=== PATIENT | female | born 1990 | race Caucasian/White ===

== ENCOUNTER 2024-05-01 10:19 | Day surgery (SDC) | payer OTHER ==
[~2024-05-01] VITALS: Ht 157.5 cm; Wt 64.5 kg
[2024-05-01] MEDS ORDERED: ROCURONIUM BROMIDE 50MG/5ML VIAL As Ordered ONE (11:02)
[2024-05-01] MEDS ORDERED: LIDOCAINE 2% 100MG/5ML SDV (FOR ANES.) As Ordered ONE (11:02)
[2024-05-01] MEDS ORDERED: ONDANSETRON 4MG 2ML VIAL As Ordered ONE (11:03)
[2024-05-01] MEDS ORDERED: diphenhydrAMINE 50MG/ML VIAL As Ordered ONE (11:14)
[2024-05-01] MEDS: LR 1,000 ML IV SCH (11:20)
[2024-05-01] MEDS ORDERED: MIDAZOLAM INJ 2MG/2ML VIAL As Ordered ONE (11:27)
[2024-05-01] MEDS ORDERED: fentaNYL 100 MCG/2 ML INJECTION As Ordered ONE (11:27)
[2024-05-01] MEDS ORDERED: ACETAMINOPHEN 1000MG 100ML IV BAG As Ordered ONE (11:31)
[2024-05-01] MEDS: AMPICILLIN SOD/SULBACTAM SOD 3 GM in D5W MINI-BAG PLUS 100 ML IV ONE (11:52)
[2024-05-01] MEDS ORDERED: KETOROLAC 60MG 2ML VIAL As Ordered ONE (12:03)
[2024-05-01] MEDS ORDERED: SUGAMMADEX SODIUM 500 MG/5 ML VIAL (BRIDION) As Ordered ONE (12:03)
[2024-05-01] MEDS: LIDOCAINE 2% W/ EPINEPHRINE 1.7 ML DENTAL INJ As Ordered ONE (12:35)
[2024-05-01] MEDS ORDERED: oxyCODONE 5MG TAB PO PRN (12:45)
[2024-05-01] MEDS ORDERED: ONDANSETRON 4MG 2ML VIAL IV PRN (12:45)
[2024-05-01] MEDS ORDERED: LR 1,000 ML IV SCH (12:45)
[2024-05-01] MEDS ORDERED: HYDROMORPHONE HCL 0.5 MG/ 0.5 ML SYRINGE IV PRN (12:45)
[2024-05-01] MEDS ORDERED: fentaNYL 100 MCG/2 ML INJECTION IV PRN (12:45)
[2024-05-01] MEDS ORDERED: OXYMETAZOLINE 0.05% NASAL SPRAY (AFRIN) As Ordered ONE (13:05)
[2024-05-01 13:58] VITALS: BP 109/59; TEMP 98.1; O2SAT 100
== END 2024-05-01 14:07 | disposition home or self-care (01) ==
LOC: M SDC 10:19
PROVIDERS: ATTEND Dentist
DX: K02.9 Dental caries, unspecified (principal); F40.232 Fear of other medical care; Z91.040 Latex allergy status; Z88.1 Allergy status to other antibiotic agents; Z88.0 Allergy status to penicillin; F17.290 Nicotine dependence, other tobacco product, uncomplicated
CPT/HCPCS: 88300; C9290; D7140; D7210; J0131; J0295; J1100; J1200; J1885; J2250; J2405; J3010